=== PATIENT | male | born 1970 | race Caucasian/White ===

== ENCOUNTER 2016-06-07 20:36 | Emergency (ER) | payer SELFPAY ==
[~2016-06-07] VITALS: Ht 188 cm; Wt 72.0 kg
[2016-06-07] MEDS ORDERED: morphine INJ 4 MG/ML 1 ML SYRINGE IV PRN (20:50)
[2016-06-07] MEDS ORDERED: NITROGLYCERIN SUBLINGUAL 0.4 MG (NITROQUICK) TABLET SL PRN (20:50)
[2016-06-07] MEDS ORDERED: ONDANSETRON 2 MG/ML (Z0FRAN) 2 ML VIAL IV ONE (20:50)
[2016-06-07] MEDS ORDERED: SODIUM CHLORIDE 250 ML IV PRN (20:50)
[2016-06-07] MEDS ORDERED: SODIUM CHLORIDE FLUSH 10 ML SYR IV PRN (20:50)
[2016-06-07] MEDS ORDERED: SODIUM CHLORIDE FLUSH 3 ML SYR IV PRN (20:50)
[2016-06-07] MEDS ORDERED: ASPIRIN 81 MG CHEW (CHILDREN'S ASA) PO ONE (20:50)
[2016-06-07 21:11] LABS: BASOPHILS % (AUTO) 0 % (0-2); EOSINOPHILS # (AUTO) 0.2 10^3uL; EOSINOPHILS % (AUTO) 3 % (0-4); LYMPHOCYTES # (AUTO) 1.9 X10^3; MEAN CORPUSCULAR HEMOGLOBIN 31.1 PG (26.0-34.0); MEAN CORPUSCULAR HGB CONC 34.5 g/dL (31.0-37.0); MEAN CORPUSCULAR VOLUME 90 FL (80-100); MEAN PLATELET VOLUME 10.6 FL (6.0-9.5); MONOCYTES # (AUTO) 0.9 X10^3; MONOCYTES % (AUTO) 12 % (3-11); NEUTROPHILS # (AUTO) 3.9 X10^3; NEUTROPHILS % (AUTO) 56 % (51-67); PLATELET COUNT 266 10^3uL (150-450); WHITE BLOOD COUNT 6.83 10^3uL (4.0-11.0)
[2016-06-07 21:21] LABS: ALBUMIN 4.1 g/dL (3.4-5.0); ALKALINE PHOSPHATASE 79 U/L (38-126); ANION GAP 16.1 MEQ/L (3-15); BUN/CREATININE RATIO 16 (10-20); CALCULATED IONIZED CALCIUM 3.8 mg/dL (3.8-4.6); CREATINE KINASE 81 U/L (55-170); TOTAL PROTEIN 7.2 g/dL (6.4-8.5)
[2016-06-07 23:35] VITALS: BP 99/62
== END 2016-06-07 23:35 | disposition home or self-care (01) ==
LOC: ED 20:39
DX: I95.1 Orthostatic hypotension (principal); R42 Dizziness and giddiness
CPT/HCPCS: 36415; 71010; 80053; 82550; 82553; 83880; 84443; 84484; 85025; 85610; 85730; 93005; 99285; J7030; 93010; 96360; 99284